=== PATIENT | male | born 2000 | race Caucasian/White ===

== ENCOUNTER 2021-07-10 18:35 | Observation (INO) | payer SELFPAY ==
[~2021-07-10] VITALS: Ht 190.5 cm; Wt 81.8 kg
[2021-07-10 22:19] LABS: BASO # 0.1 x10^3/uL (0.0-0.2); BASO % 0 % (0-3); EOS # 0.2 x10^3/uL (0.0-0.7); EOS % 2 % (0-3); HEMOGLOBIN 13.4 g/dL (13.0-17.5); LYMPH # 1.6 x10^3/uL (1.0-4.8); LYMPH % 11 % (24-48); MEAN CORPUSCULAR HEMOGLOBIN 30 pg (25-35); MEAN CORPUSCULAR HGB CONC 35 g/dL (31-37); MEAN CORPUSCULAR VOLUME 87 fL (79-100); MONO # 1.2 x10^3/uL (0.0-1.1); MONO % 8 % (0-9); NEUT # 12.2 x10^3/uL (1.8-7.7); NEUT % 80 % (31-73); PLATELET COUNT 275 x10^3/uL (140-400); RED CELL DISTRIBUTION WIDTH 13.7 % (11.5-14.5); WHITE BLOOD COUNT 15.3 x10^3/uL (4.0-11.0)
--- NOTE | 2021-07-10 22:25 | PHYS DOC ---
Past Medical History Past Surgical History: Appendectomy Smoking Status: Never Smoker Alcohol Use: Rarely General Adult EDM: Chief Complaint: SEIZURE HPI: HPI: Patient is a 20 year old male who presents with is from [facility] and here visiting. He left his gabapentin that he uses for his grand mal seizures at home. He states that he had been on Keppra long time ago but the gabapentin works better. He has not been taking his meds since the last 2 days. He had a witnessed grand mal seizure today that lasted for 3 to 4 minutes. Patient's friend stated that he slowly went down to the ground and is unsure if he hit his head. His mother states that the patient has been having many seizures in his sleep for months and he is starting to crack his teeth. Patient states he does not have a neurologist. [place] He states that he is looking to move back up this way and will need a neurologist. As a child he went to [facility] for his seizures. Patient denies hitting his head, headache, dizziness, vision change, numbness or tingling although he stated that his legs were tingling when he came to after the seizure, focal weakness, chest pain, shortness of air, fever, cough. He states he is also out in the heat at the [employer] yesterday and today day he was out in the heat too. Denies any pain at this time. Review of Systems: Review of Systems: Constitutional: Denies fever or chills. [] Eyes: Denies change in visual acuity. [] HENT: Denies nasal congestion or sore throat. [] Respiratory: Denies cough or shortness of breath. [] Cardiovascular: Denies chest pain or edema. [] GI: Denies abdominal pain, nausea, vomiting, bloody stools or diarrhea. [] : Denies dysuria. [] Musculoskeletal: Denies back pain or joint pain. [] Integument: Denies rash. [] Neurologic: Denies headache, focal weakness or sensory changes. +Seizure[] Endocrine: Denies polyuria or polydipsia. [] Lymphatic: Denies swollen glands. [] Psychiatric: Denies depression or anxiety. [] Heart Score: C/O Chest Pain: No Risk Factors: Risk Factors: DM, Current or recent (<one month) smoker, HTN, HLP, family history of CAD, obesity. Risk Scores: Score 0 - 3: 2.5% MACE over next 6 weeks - Discharge Home Score 4 - 6: 20.3% MACE over next 6 weeks - Admit for Clinical Observation Score 7 - 10: 72.7% MACE over next 6 weeks - Early Invasive Strategies Current Medications: Current Medications Medications (Trade) Dose Ordered Sig/Lalit Start Time Stop Time Status Last Admin Dose Admin Gabapentin (Neurontin) 200 mg 1X ONCE 07/10/21 22:30 07/10/21 22:31 Levetiracetam 1000 mg/Dextrose 110 ml @ 440 mls/hr 1X ONCE 07/10/21 22:30 07/10/21 22:44 Sodium Chloride 1,000 ml @ 1,000 mls/hr 1X ONCE 07/10/21 22:30 07/10/21 23:29 Allergies: Allergies: Allergies Coded Allergies Type Severity Reaction Last Updated Verified No Known Drug Allergies 07/10/21 No Physical Exam: PE: Constitutional: Well developed, well nourished, no acute distress, non-toxic appearance. [] HENT: Normocephalic, atraumatic, bilateral external ears normal, oropharynx moist, no oral exudates, nose normal. [] Eyes: PERRLA, EOMI, conjunctiva normal, no discharge. [] Neck: Normal range of motion, no tenderness, supple, no stridor. [] Cardiovascular:Heart rate regular rhythm, no murmur [] Lungs & Thorax: Bilateral breath sounds clear to auscultation [] Abdomen: Bowel sounds normal, soft, no tenderness, no masses, no pulsatile masses. [] Skin: Warm, dry, no erythema, no rash. [] Back: No tenderness, no CVA tenderness. [] Extremities: No tenderness, no cyanosis, no clubbing, ROM intact, no edema. [] Neurologic: Alert and oriented X 3, normal motor function, normal sensory function, no focal deficits noted. [] Psychologic: Affect normal, judgement normal, mood normal. [] Normal physical exam Current Patient Data: Vital Signs: Vital Signs Date Time Temp Pulse Resp B/P (MAP) Pulse Ox O2 Delivery O2 Flow Rate FiO2 07/10/21 20:26 98.9 79 23 128/80 100 Room Air 98.9 EKG: EK and read by Dr. Mullen as sinus rhythm and no STEMI Radiology/Procedures: Radiology/Procedures: [] Impression: [facility] [address] [place], [place] [id number] IMAGING REPORT Signed PATIENT: DAWN MARSHALLCOUNT: [id number] : 2000 LOCATION: ER AGE: 20 SEX: M EXAM STATUS: PRE ER ORD. PHYSICIAN: HIWOT CARNEY APRN REASON: seizure, fall to ground PROCEDURE: CT HEAD AND CERVICAL SPINE WO CT HEAD AND C-SPINE WO dated 07/10/2021 10:37 PM. Comparison: None. Clinical Indication: Reason: seizure, fall to ground / Spl. Instructions: / History: , HEAD AND NECK PAIN Technical factors: Contiguous 5 mm axial images of the head were obtained from the skullbase to the vertex. No contrast was administered. In addition, 3 mm axial images of the cervical spine were acquired with thin cut coronal and sagittal reconstructions. One or more of the following individualized dose reduction techniques were utilized for this examination: 1. Automated exposure control 2. Adjustment of the mA and/or kV according to patient size 3. Use of iterative reconstruction technique Findings head: Ventricles and sulci are within normal limits for age. No evidence of ventricular shift or mass effect. Brain parenchyma is of normal attenuation. There is no evidence of hemorrhage or extra-axial collection. Mild mucosal thickening of the bilateral ethmoid air cells. The visualized paranasal sinuses and mastoid air cells are otherwise clear. IMPRESSION HEAD: 1. No evidence of acute intracranial hemorrhage or mass. 2. Mild sinus disease. Findings cervical spine: Images were acquired from the skull base to T2. There is straightening of the normal cervical lordosis, otherwise sagittal alignment is anatomic. Vertebral body heights are maintained. No prevertebral soft tissue swelling. Posterior elements are intact. No fractures are identified. Minimal vertebral hypertrophy at the mid to lower cervical levels. Facet joints are unremarkable. No apparent focal disc herniation. The bony canal and foramen appear adequate. Visualized soft tissue structures are unremarkable. Limited images of lung apices are clear. IMPRESSION CERVICAL SPINE: No evidence of fracture or malalignment. Electronically signed by: Baljeet Walden MD (07/10/2021 11:06 PM) [facility] [place] DICTATED and SIGNED BY: BALJEET WALDEN MD DATE: 07/10/21 [id number] 0 Course & Med Decision Making: Course & Med Decision Making Pertinent Labs and Imaging studies reviewed. (See chart for details) See HPI. Alert and oriented x4. Ambulatory steady gait. Moving all ext remities equally normally. Skin pink warm and dry. He states he takes gabapentin 1000 mg twice a day. I have ordered gabapentin 1000 mg here. 2200: Patient had a witnessed short seizure by Medic. Patient is given Keppra bolus. Patient is given 2L normal saline fluid. Lactic is normal. Patient likely having a withdrawal from gabapentin. Patient admitted to hospitalist. I will consult neurology so he can have follow-up care. [] Yves Disclaimer: Yves Disclaimer: This electronic medical record was generated, in whole or in part, using a voice recognition dictation system. Departure Departure Impression: Primary Impression: Seizure Disposition: ADMITTED INPATIENT Condition: STABLE HIWOT CARNEY CHIEF CREDIT OFFICER Jul 10, 2021 22:25
[2021-07-10 22:29] LABS: CALCIUM 8.7 mg/dL (8.5-10.1); CREATININE 1.2 mg/dL (0.7-1.3); GFR 76.4; POTASSIUM 3.6 mmol/L (3.5-5.1)
[2021-07-10] MEDS ORDERED: levETIRAcetam 1,000 MG in IV DEXTROSE 5% 100ML 100 ML IV ONE (22:30)
[2021-07-10] MEDS ORDERED: GABAPENTIN 400 MG CAPSULE. PO ONE (22:30)
[2021-07-10] MEDS ORDERED: GABAPENTIN 100 MG CAPSULE. PO ONE (22:30)
[2021-07-10] MEDS ORDERED: IV NORMAL SALINE 1000ML BAG 1,000 ML IV ONE ×2 (22:30)
[2021-07-10 22:35] LABS: ALBUMIN 4.2 g/dL (3.4-5.0); ALBUMIN/GLOBULIN RATIO 1.5 (1.0-1.7); TOTAL BILIRUBIN 0.6 mg/dL (0.2-1.0)
--- NOTE | 2021-07-10 23:09 | RAD ---
CT HEAD AND C-SPINE WO dated 07/10/2021 10:37 PM. Comparison: None. Clinical Indication: Reason: seizure, fall to ground / Spl. Instructions: / History: , HEAD AND NECK PAIN Technical factors: Contiguous 5 mm axial images of the head were obtained from the skullbase to the v ertex. No contrast was administered. In addition, 3 mm axial images of the cervical spine were acquir ed with thin cut coronal and sagittal reconstructions. One or more of the following individualized dose reduction techniques were utilized for this examinat ion: 1. Automated exposure control 2. Adjustment of the mA and/or kV according to patient size 3. Use of iterative reconstruction technique Findings head: Ventricles and sulci are within normal limits for age. No evidence of ventricular shift or mass effec t. Brain parenchyma is of normal attenuation. There is no evidence of hemorrhage or extra-axial colle ction. Mild mucosal thickening of the bilateral ethmoid air cells. The visualized paranasal sinuses and mast oid air cells are otherwise clear. IMPRESSION HEAD: 1. No evidence of acute intracranial hemorrhage or mass. 2. Mild sinus disease. Findings cervical spine: Images were acquired from the skull base to T2. There is straightening of the normal cervical lordosi s, otherwise sagittal alignment is anatomic. Vertebral body heights are maintained. No prevertebral s oft tissue swelling. Posterior elements are intact. No fractures are identified. Minimal vertebral hypertrophy at the mid to lower cervical levels. Facet joints are unremarkable. No apparent focal disc herniation. The bony canal and foramen appear adequate. Visualized soft tissue structures are unremarkable. Limited images of lung apices are clear. IMPRESSION CERVICAL SPINE: No evidence of fracture or malalignment. Electronically signed by: Baljeet Walden MD (07/10/2021 11:06 PM) VIDHI
[2021-07-10 23:40] LABS: CREATINE KINASE 280 U/L (39-308); MYOGLOBIN 118 ng/mL (16-96)
--- NOTE | 2021-07-10 23:50 | RAD ---
Single view chest dated 07/10/2021 11:47 PM: COMPARISON: None Clinical Indication: Syncope. Findings: Single upright portable exam of the chest was performed. Heart size and mediastinal contours are with in normal limits. Lungs are clear. No consolidation or pleural effusion. No pneumothorax. IMPRESSION: No acute radiographic abnormality. Electronically signed by: Baljeet Walden MD (07/10/2021 11:47 PM) DEEPTHI
[2021-07-10 23:52] LABS: BARBITURATES NEG (NEG); BENZODIAZEPINES NEG (NEG); CANNABINOIDS POS (NEG); COCAINE NEG (NEG); METHADONE NEG (NEG); OPIATES NEG (NEG); PHENCYCLIDINE NEG (NEG)
[2021-07-10 23:53] LABS: AMPHETAMINE/METHAMPHETAMINE NEG (NEG)
--- NOTE | 2021-07-11 00:51 | EKG ---
[facility] [address] [place] [address] Test Date: 2021-07-10 Test Time: 21:46:36 Pat Name: DAWN MARSHALL Department: Room: Gender: M Patient Clerical Assistant: : 2000 Requested By: HIWOT CARNEY Order Number: [id number] Reading MD: Measurements Intervals [place] Rate: 71 P: 51 MD: 162 QRS: 54 QRSD: 94 T: 64 QT: 380 QTc: 418 Interpretive Statements SINUS RHYTHM NORMAL ECG RI6.02 No previous ECG available for comparison
[2021-07-11 04:53] VITALS: BP 97/56
[2021-07-11] MEDS ORDERED: levETIRAcetam 500 MG TABLET PO SCH (09:30)
--- NOTE | 2021-07-11 14:03 | PDOC ---
GENERAL General: Left AMA before he could be seen. VITAL SIGNS Vital Signs/I&O: Vital Signs Date Time Temp Pulse Resp B/P (MAP) Pulse Ox O2 Delivery O2 Flow Rate FiO2 07/11/21 04:53 50 14 95 07/10/21 20:26 98.9 128/80 Room Air 98.9 I & O 07/10/21 07/10/21 07/11/21 15:00 23:00 07:00 Intake Total 2110 ml Balance 2110 ml ALLERGIES Allergies: Allergies Coded Allergies Type Severity Reaction Last Updated Verified No Known Drug Allergies 07/10/21 No MEDS Medications: Current Medications Medications (Trade) Dose Ordered Sig/Lalit Route PRN Reason Start Time Stop Time Status Last Admin Dose Admin Sodium Chloride 1,000 ml @ 1,000 mls/hr 1X ONCE IV 07/10/21 22:30 07/10/21 23:29 DC 07/10/21 22:30 Sodium Chloride 1,000 ml @ 1,000 mls/hr 1X ONCE IV 07/10/21 22:30 07/10/21 23:29 DC 07/11/21 00:21 Gabapentin (Neurontin) 800 mg 1X ONCE PO 07/10/21 22:30 07/10/21 22:31 DC 07/10/21 22:30 Gabapentin (Neurontin) 200 mg 1X ONCE PO 07/10/21 22:30 07/10/21 22:31 DC 07/10/21 22:30 Levetiracetam 1000 mg/Dextrose 110 ml @ 440 mls/hr 1X ONCE IV 07/10/21 22:30 07/10/21 22:44 DC 07/10/21 22:56 LAB Lab: Laboratory Tests Test 07/10/21 22:07 07/10/21 23:37 White Blood Count 15.3 x10^3/uL (4.0-11.0) H Red Blood Count 4.50 x10^6/uL (4.30-5.70) Hemoglobin 13.4 g/dL (13.0-17.5) Hematocrit 39.0 % (39.0-53.0) Mean Corpuscular Volume 87 fL (79-100) Mean Corpuscular Hemoglobin 30 pg (25-35) Mean Corpuscular Hemoglobin Concent 35 g/dL (31-37) Red Cell Distribution Width 13.7 % (11.5-14.5) Platelet Count 275 x10^3/uL (140-400) Neutrophils (%) (Auto) 80 % (31-73) H Lymphocytes (%) (Auto) 11 % (24-48) L Monocytes (%) (Auto) 8 % (0-9) Eosinophils (%) (Auto) 2 % (0-3) Basophils (%) (Auto) 0 % (0-3) Neutrophils # (Auto) 12.2 x10^3/uL (1.8-7.7) H Lymphocytes # (Auto) 1.6 x10^3/uL (1.0-4.8) Monocytes # (Auto) 1.2 x10^3/uL (0.0-1.1) H Eosinophils # (Auto) 0.2 x10^3/uL (0.0-0.7) Basophils # (Auto) 0.1 x10^3/uL (0.0-0.2) Sodium Level 137 mmol/L (136-145) Potassium Level 3.6 mmol/L (3.5-5.1) Chloride Level 102 mmol/L (98-107) Carbon Dioxide Level 25 mmol/L (21-32) Anion Gap 10 (6-14) Blood Urea Nitrogen 12 mg/dL (8-26) Creatinine 1.2 mg/dL (0.7-1.3) Estimated GFR (Cockcroft-Gault) 76.4 BUN/Creatinine Ratio 10 (6-20) Glucose Level 108 mg/dL (70-99) H Lactic Acid Level 1.2 mmol/L (0.4-2.0) Calcium Level 8.7 mg/dL (8.5-10.1) Total Bilirubin 0.6 mg/dL (0.2-1.0) Aspartate Amino Transferase (AST) 13 U/L (15-37) L Alanine Aminotransferase (ALT) 24 U/L (16-63) Alkaline Phosphatase 50 U/L (46-116) Creatine Kinase 280 U/L (39-308) Myoglobin 118 ng/mL (16-96) H Total Protein 7.0 g/dL (6.4-8.2) Albumin 4.2 g/dL (3.4-5.0) Albumin/Globulin Ratio 1.5 (1.0-1.7) Urine Opiates Screen Neg (NEG) Urine Methadone Screen Neg (NEG) Urine Barbiturates Neg (NEG) Urine Phencyclidine Screen Neg (NEG) Urine Amphetamine/Methamphetamine Neg (NEG) Urine Benzodiazepines Screen Neg (NEG) Urine Cocaine Screen Neg (NEG) Urine Cannabinoids Screen Pos (NEG) Urine Ethyl Alcohol Neg (NEG) Laboratory Tests 07/10/21 22:07 Laboratory Tests 07/10/21 22:07 Justifications for Admission Other Justification AP MCCARTY MD Jul 11, 2021 14:03
--- NOTE | 2021-07-11 14:07 | PDOC ---
Provider Note Date of Service: DATE: 07/11/21 TIME: 14:05 Provider Note Discussed with ER staff, no purpose of neurology consult in a known seizure patient with breakthrough seizure due to noncompliance. Resume levetiracetam, followup with neurologist in [place]. Patient has left AMA Justifications for Admission Other Justification ADAMS GATES MD Jul 11, 2021 14:07
[2021-07-11] MEDS ORDERED: GABAPENTIN 300 MG CAPSULE. PO SCH (21:00)
== END 2021-07-11 10:04 | disposition left against medical advice (07) ==
LOC: ER 18:35 → UNDOADMOB 07-11 00:30 → ER 07-11 00:30 → ED HOLD 07-11 00:30
PROVIDERS: ADMIT Internal Medicine; ATTEND Internal Medicine
DX: R56.9 Unspecified convulsions (principal); Z91.14 Patient's other noncompliance with medication regimen; Z79.899 Other long term (current) drug therapy
CPT/HCPCS: 36415; 70450; 71045; 72125; 80053; 80307; 82550; 83605; 83874; 85025; 93005; 96361; 96374; 99285; G0378; J1953; J7030; J7060; G0379